=== PATIENT | female | born 1985 | race Caucasian/White ===

== ENCOUNTER → 2016-10-17 | Outpatient (REF) | payer OTHER | LOC: M LAB REF 11:47 | PROVIDERS: ATTEND Physician Assistant Medical | DX: J11.1 Influenza due to unidentified influenza virus with other respiratory manifestations (principal) ==

== ENCOUNTER → 2018-08-29 | Outpatient (REF) ==
--- NOTE | 2018-08-29 12:09 | REP ---
Left hip: Two views. History: Pain after fall. Question fracture. Findings: AP and frog-leg views of the left hip show an intact femoral head. Joint spaces preserved. Periarticular soft tissues are unremarkable. Left hemipelvis is intact. Impression: Negative left hip radiographs. Electronically Signed by Christian Bean MD 08/29/2018 12:01 P
== END ==
LOC: M RAD 11:36
PROVIDERS: ATTEND Nurse Practitioner Family
DX: Z00.00 Encounter for general adult medical examination without abnormal findings (principal)

== ENCOUNTER → 2023-01-25 | Outpatient (CLI) | payer SELFPAY | LOC: M WHC 12:14 | PROVIDERS: ATTEND Nurse Practitioner Family | DX: N83.201 Unspecified ovarian cyst, right side (principal); N93.9 Abnormal uterine and vaginal bleeding, unspecified ==